=== PATIENT | female | born 1985 | race Caucasian/White ===

== ENCOUNTER 2022-12-03 13:33 | Outpatient (CLI) | payer OTHER | END 2022-12-03 13:34 | disposition home or self-care (01) | LOC: CSHMAMMO 13:33 | PROVIDERS: ATTEND Nurse Practitioner Family | DX: N63.21 Unspecified lump in the left breast, upper outer quadrant (principal); N63.11 Unspecified lump in the right breast, upper outer quadrant | CPT/HCPCS: 77066; G0279 ==